=== PATIENT | female | born 1980 | race Hispanic/Latino ===

== ENCOUNTER → 2017-04-14 | Emergency (ER) | payer SELFPAY ==
[~2017-04-14] VITALS: Ht 160 cm; Wt 89.8 kg
[~2017-04-14] MED LIST: DEXAMETHASONE SOD PHOS 10 MG/1 ML VIAL INJ ONE; DIAZEPAM 2 MG TAB PO ONE; HYDROCODONE/APAP 10MG-325MG TAB PO ONE; KETOROLAC TROMETHAMINE 60 MG/2 ML VIAL IM ONE
== END | disposition home or self-care (01) ==
LOC: ER 16:31
DX: S39.012A Strain of muscle, fascia and tendon of lower back, initial encounter (principal)
CPT/HCPCS: 99282; J1100; J1885